=== PATIENT | male | born 1995 | race Caucasian/White ===

== ENCOUNTER 2017-11-18 17:30 | Emergency (ER) | payer OTHER ==
[~2017-11-18] VITALS: Ht 172.7 cm; Wt 69.4 kg
[2017-11-18 17:36] VITALS: Ht 172.7 cm; Wt 69.4 kg
[2017-11-18 18:33] LABS: CALCIUM 9.5 mg/dL (8.5-10.1); CARBON DIOXIDE 18.5 mmol/L (21-32); CHLORIDE SERUM 101 mmol/L (98-107); CREATININE SERUM 1.2 mg/dL (0.7-1.3); GFR1 > 60 mL/min; GLUCOSE SERUM 189 mg/dL (74-106); POTASSIUM SERUM 3.8 mmol/L (3.5-5.1); SODIUM SERUM 140 mmol/L (136-145)
[2017-11-18 18:34] LABS: BASOPHIL % 0.3 % (0-2); PLATELET COUNT 244 x10^3mcL (130-400); RED CELL DISTRIBUTION WIDTH 12.8 % (11.5-14.5)
[2017-11-18 18:38] LABS: ALBUMIN 4.8 g/dL (3.4-5.0); ALKALINE PHOSPHATASE 84 U/L (46-116); ALT/SGPT 31 U/L (16-63); AST/SGOT 15 U/L (15-37); BILIRUBIN TOTAL 0.91 mg/dL (0.20-1.00)
[2017-11-18 18:45] LABS: TOTAL PROTEIN, SERUM 8.6 g/dL (6.4-8.2)
[2017-11-18 20:03] VITALS: BP 124/84
== END 2017-11-18 20:03 | disposition home or self-care (01) ==
LOC: ED 17:30
PROVIDERS: Emergency Medicine
DX: S09.90XA Unspecified injury of head, initial encounter (principal); R56.9 Unspecified convulsions; X58.XXXA Exposure to other specified factors, initial encounter; Y93.89 Activity, other specified; Y92.89 Other specified places as the place of occurrence of the external cause; Y99.8 Other external cause status
CPT/HCPCS: G0480; J1885; J7030